=== PATIENT | male | born 1960 | race Caucasian/White ===

== ENCOUNTER → 2021-03-05 | Outpatient (CLI) | payer OTHER ==
[~2021-03-05] MED LIST: CLINDAMYCI75 MG/5 ML PER TUBE; FENTANYL1 EAC1 TD; HYDROCODON-ACE1 EAC7; HYDROGEN PEROX480 M1 MC; MIRALAX255 GM; MUPIROCIN22 GM; OXYCODONE H5 MG/5 ML PER TUBE; ROXANOL GT; TESTIM5 GM; THERA-M CAPLET1 EACH PO; TOBRADEX ST EYE5 ML OP
== END ==
LOC: SJCVCIMAG 13:30
PROVIDERS: ATTEND Internal Medicine Cardiovascular Disease
DX: I25.10 Atherosclerotic heart disease of native coronary artery without angina pectoris (principal)